=== PATIENT | female | born 1960 | race Caucasian/White ===

== ENCOUNTER → 2016-07-25 | Outpatient (CLI) | payer BC ==
[~2016-07-25] MED LIST: PANT40TA2 PO; SYMB16INH INH; TRAM50TA2 PO
[2016-07-25 10:26] LABS: MEAN CORPUSCULAR HEMOGLOBIN 31.8 pg (27.0-33.0); MEAN CORPUSCULAR HGB CONC 33.4 g/dl (32.0-36.5); MEAN CORPUSCULAR VOLUME 95.1 fl (80.0-96.0); RED CELL DISTRIBUTION WIDTH 12.4 % (11.5-14.5); WHITE BLOOD COUNT 6.4 K/mm3 (4.0-10.0)
[2016-07-25 10:31] LABS: INR 0.86
[2016-07-25 10:54] LABS: ALBUMIN 3.8 GM/DL (3.2-5.2); ALBUMIN/GLOBULIN RATIO 1.19 (1.00-1.93); ALKALINE PHOSPHATASE 103 U/L (45-117); ALT/SGPT 32 U/L (12-78); ANION GAP 5 MEQ/L (8-16); AST/SGOT 18 U/L (15-37); BILIRUBIN,TOTAL 1.1 MG/DL (0.2-1.0); BLOOD UREA NITROGEN 13 MG/DL (7-18); CALCIUM LEVEL 9.1 MG/DL (8.5-10.1); CARBON DIOXIDE LEVEL 29 MEQ/L (21-32); CHLORIDE LEVEL 108 MEQ/L (98-107); CREATININE FOR GFR 0.68 MG/DL (0.55-1.02); GLOMERULAR FILTRATION RATE > 60.0 (>51); GLUCOSE, FASTING 92 MG/DL (70-105); POTASSIUM SERUM 4.6 MEQ/L (3.5-5.1); SODIUM LEVEL 142 MEQ/L (136-145)
--- NOTE | 2016-07-25 22:34 | REP ---
Clinical: Preoperative assessment . Comparison: 11/05/2006 . Technique: PA and lateral. Findings: The mediastinum and cardiac silhouette are normal. The lung mcghee are clear and without acute consolidation, effusion, or pneumothorax. The skeletal structures are intact and normal. Impression: 1. No acute cardiopulmonary process. Signed by Evert Wheeler MD 07/25/2016 10:25 P
--- NOTE | 2016-07-26 20:39 | ECGEPIP ---
Stationary ECG Study [facility] Test Date: 2016-07-25 Pat Name: KENYATTA CHOPRA Department: Room: - Gender: F [employer]: TYREE : 1960 Requested By: Jaime Negrete Order Number: [id number] Reading MD: Jacques Peres Measurements Intervals Equality Rate: 70 P: 33 WY: 145 QRS: 25 QRSD: 88 T: 22 QT: 409 QTc: 442 Interpretive Statements Sinus rhythm, 70 BPM, minor nonspecific ST-T Abnormalities. No prior ECG available for comparison at the time of interpretation. Electronically Signed On 07-26-2016 20:39:04 EDT by Jacques Peres
--- NOTE | 2016-08-02 15:37 | HPE ---
DATE OF PLANNED ADMISSION: 08/08/2016 ATTENDING PHYSICIAN: Jaime Hollingsworth MD CHIEF COMPLAINT: Left knee pain and stiffness. HISTORY: The patient is a 55-year-old female presenting with left knee pain and stiffness. She has failed to improve with conservative measures so she has elected for a left total knee arthroplasty with Dr. Hollingsworth. Medical optimization is pending with Dr. Hardwick and is not available for review during today's visit. CURRENT MEDICATIONS: - tramadol 50 mg one every 6 hours as needed for pain - pantoprazole - Symbicort - Allergy shots every 2 weeks ALLERGIES: No known drug allergies. PAST MEDICAL HISTORY: Asthma. Acid reflux. Knee osteoarthritis. PAST SURGICAL HISTORY: Right total knee arthroplasty. Cholecystectomy. Right knee arthroscopies times three prior to arthroplasty. FAMILY HISTORY: Noncontributory. SOCIAL HISTORY: The patient is not a smoker. Denies alcohol use. REVIEW OF SYSTEMS: The patient denies fever, chills, nausea, vomiting or diarrhea. She denies any chest pain, shortness of breath or headaches. She denies any recent upper respiratory or urinary tract infection symptoms. She does have persistent left knee pain with weightbearing activities. PHYSICAL EXAMINATION: Well-nourished, well-developed female in no apparent distress. NECK: Supple without lymphadenopathy or jugular venous distention. LUNGS: Clear to auscultation bilaterally. ABDOMEN: Bowel sounds are present. Soft and nontender to palpation. MUSCULOSKELETAL: Inspection of the left knee reveal no gross abnormalities. Her skin is intact. She does have tenderness along the medial and lateral joint line. She can extend knee to full extension, but can only flex to about 95 degrees. She does have normal strength of the left lower extremity. No hip irritability was elicited with range of motion. Her calf was soft, nontender to palpation with no palpable cords noted. Her pedal pulses are palpable. VITAL SIGNS: Height 5 foot 6 inches, weight 193.6 pounds, temperature 99.1. Blood pressure 130/90, pulse 64, respirations 12. LABORATORY DATA: Chest x-ray: No acute cardiopulmonary process. EKG: Sinus rhythm. Minor nonspecific ST-T wave abnormalities. Urinalysis: Positive for 2+ leukocyte esterase and WBC elevated at 12. Urine culture shows no growth. Nasal and sinus culture shows normal thee. Prothrombin time 11.8. INR 0.96. Comprehensive metabolic profile: Fasting glucose 92, BUN 13, creatinine for GFR 0.68. Glomerular filtration rate greater than 60. Sodium 142, potassium 4.6, chloride elevated at 108, carbon dioxide 29, anion gap decreased at 5, calcium 9.1. AST 18, ALT 32, alkaline phosphatase 103, total bilirubin 1.1, total protein 7.0, albumin 3.8, albumin globulin ratio 1.19. Complete blood count: WBC 6.4, RBC 4.5, hemoglobin 14.3, hematocrit 42.8, platelets 146. Erythrocyte sedimentation rate 11. ASSESSMENT: Left knee degenerative arthritis with x-rays notable for end-stage degenerative changes. PLAN: The patient has consented for an elective left total knee arthroplasty with Dr. Hollingsworth. Medical optimization pending with Dr. Hardwick.
== END ==
LOC: M ADMPAT 09:09
PROVIDERS: ATTEND Orthopaedic Surgery
DX: Z01.818 Encounter for other preprocedural examination (principal); M17.12 Unilateral primary osteoarthritis, left knee; Z79.899 Other long term (current) drug therapy

== ENCOUNTER 2016-08-08 07:38 | Inpatient (IN) | payer BC ==
[2016-07-25 09:59] VITALS: BP 128/76
[2016-08-08] VITALS (7 sets, daily range): BP systolic 102–142; BP diastolic 59–80
[~2016-08-08] VITALS: Ht 170.2 cm; Wt 87.5 kg
[2016-08-08] MEDS ORDERED: ceFAZolin 2 GM/D5W 50 ML IV BAG (J0690) As Ordered ONE (07:53)
[2016-08-08] MEDS ORDERED: ACETAMINOPHEN 500 MG TAB As Ordered ONE (07:54)
[2016-08-08] MEDS ORDERED: LR 1,000 ML IV SCH ×2 (08:15→13:00)
[2016-08-08] MEDS ORDERED: ACETAMINOPHEN 500 MG TAB PO ONE (08:15)
[2016-08-08] MEDS ORDERED: MIDAZOLAM INJ 2 MG/2 ML VIAL (J2250) As Ordered ONE ×2 (09:05→11:11)
[2016-08-08] MEDS ORDERED: MIDAZOLAM INJ 2 MG/2 ML VIAL (J2250) IV ONE (09:45)
[2016-08-08] MEDS ORDERED: ceFAZolin 1GM INJ (J0690) As Ordered ONE (10:24)
[2016-08-08] MEDS ORDERED: EPINEPHrine INJ 1 MG/ML 1ML AMP As Ordered ONE (10:24)
[2016-08-08] MEDS ORDERED: TRANEXAMIC ACID 100 MG/ML 10ML VIAL As Ordered ONE (10:24)
[2016-08-08] MEDS ORDERED: BUPIVACAINE LIPOSOME/PF 1.3% 20 ML VIAL (13.3MG/ML)(EXPAREL) As Ordered ONE (10:25)
[2016-08-08] MEDS ORDERED: dexameTHASONE 10 MG/1 ML VIAL PRES.FREE (J1100) ONE (10:57)
[2016-08-08] MEDS ORDERED: EPINEPHrine INJ 1 MG/ML 1ML AMP ONE (10:57)
[2016-08-08] MEDS ORDERED: ROPIvacaine 0.5% 30 ML INJECTION (J2795) ONE (10:57)
[2016-08-08] MEDS ORDERED: PROPOFOL 200 MG/20 ML VIAL As Ordered ONE ×2 (11:11→11:41)
[2016-08-08] MEDS ORDERED: fentaNYL 100 MCG/2 ML INJECTION (J3010) As Ordered ONE (11:11)
[2016-08-08] MEDS ORDERED: PHENYLephrine HCL 500 MCG/5 ML (100MCG/ML) SYRINGE (J2370) As Ordered ONE ×2 (11:11→11:37)
[2016-08-08] MEDS ORDERED: ONDANSETRON 4MG/2ML VIAL (J2405) IV PRN (13:00)
[2016-08-08] MEDS ORDERED: FLEET ENEMA PR PRN (13:00)
[2016-08-08] MEDS ORDERED: MORPHINE 1MG/ML IN 0.9% NACL 100ML IV BAG IV PRN (13:00)
[2016-08-08] MEDS ORDERED: diphenhydrAMINE INJ 50MG/ML VIAL (J1200) IV PRN (13:00)
[2016-08-08] MEDS ORDERED: MORPHINE 2 MG/ML 1ML SYRINGE IV PRN (13:00)
[2016-08-08] MEDS ORDERED: EPIDURAL/PCA KEYS XX PRN (13:00)
[2016-08-08] MEDS ORDERED: PERCOCET 5MG/325MG TAB PO PRN (13:00)
[2016-08-08] MEDS ORDERED: fentaNYL 100 MCG/2 ML INJECTION (J3010) IV PRN (13:00)
[2016-08-08] MEDS ORDERED: NALBUPHINE HCL 10 MG/ML AMP (J2300) IV PRN (13:00)
[2016-08-08] MEDS ORDERED: NALOXONE INJ 0.4 MG/1 ML VIAL (J2310) IV PRN (13:00)
[2016-08-08] MEDS: LR 1,000 ML IV SCH ×2 (15:09→23:11)
--- NOTE | 2016-08-08 16:27 | CR.PDOC ---
[facility] Consultation Consultation DATE OF CONSULTATION: 08/08/16 REFERRING PROVIDER: Yann Meek M.D. ATTENDING PHYSICIAN: Dr. Hollingsworth REASON FOR CONSULTATION/CHIEF COMPLAINT: .Medical Co-management HISTORY OF PRESENT ILLNESS: . 55-year-old female with a past medical history significant for asthma and GERD was admitted to [facility] for left knee replacement. At this time, the patient denies any acute complaints of fevers, chills, chest pain, shortness of breath, palpitations, abdominal pain, or any nausea/vomiting/diarrhea. The hospitalist team has been consulted for medical comanagement. ALLERGIES: Please see below. HOME MEDICATIONS: Please see below. PAST MEDICAL HISTORY: As noted above PAST SURGICAL HISTORY: Right total knee arthroplasty FAMILY HISTORY: Noncontributory SOCIAL HISTORY: Patient denies any alcohol, tobacco, or illicit drug use. He is functionally independent at baseline with activities of daily living. REVIEW OF SYSTEMS: 10 point review of systems negative unless otherwise specified in HPI PHYSICAL EXAMINATION: VITAL SIGNS: Please see below. GENERAL APPEARANCE: . Awake, alert, oriented HEENT: . Normocephalic, atraumatic RESPIRATORY: . Clear to auscultation bilaterally CARDIOVASCULAR: . Normal rate, normal rhythm ABDOMEN: . Soft, nontender, nondistended EXTREMITIES: . Left knee noted to wrapped in surgical dressing. Range of motion limited secondary to recent surgery. Neurovascularly intact distally. LABORATORY DATA: Please see below. ASSESSMENT/PLAN: Status post left total knee arthroplasty Pain management and DVT prophylaxis as per primary team History of asthma, stable Continue Symbicort GERD Continue Protonix twice a day Should there be any questions regarding the patient's medical management moving forward, please do not hesitate to contact my colleague Dr. Wilkins, who will begin to follow the patient on 08/09/16 @ 7am. Vital Signs/I&O Vital Signs Date Time Temp Pulse Resp B/P (MAP) Pulse Ox O2 Delivery O2 Flow Rate FiO2 08/08/16 14:43 Room Air 08/08/16 13:56 67 99 08/08/16 13:55 18 132/79 (96) 08/08/16 13:40 97.5 08/08/16 10:29 2 Allergies Coded Allergies: No Known Drug Allergy (Verified Allergy, Unknown, 08/08/16) Home Medications Scheduled Budesonide/Formoterol (Symbicort 160-4.5 Mcg/Act) 60 Puff/Inhaler Aers, 2 PUFF INH BID, (Reported) Pantoprazole Sodium (Pantoprazole Sodium) 40 Mg Tab, 40 MG PO BID, (Reported) Scheduled PRN Tramadol HCl (Tramadol HCl) 50 Mg Tab, 50 MG PO Q4H PRN for PAIN, (Reported) YANN MEEK MD Aug 08, 2016 16:27
[2016-08-08] MEDS ORDERED: WARFARIN SOD 5 MG TAB PO ONE (17:00)
[2016-08-08] MEDS: ONDANSETRON 4MG/2ML VIAL (J2405) IV PRN (17:54)
[2016-08-08] MEDS: SYMBICORT 160/4.5MCG INHALER 6GM INH SCH (20:14)
[2016-08-08] MEDS: PANTOPRAZOLE 40MG TAB (PROTONIX) PO SCH (20:42)
[2016-08-09 02:00] VITALS: BP 105/62
[2016-08-09] MEDS: ONDANSETRON 4MG/2ML VIAL (J2405) IV PRN (02:44)
[2016-08-09 06:00] VITALS: BP 104/57
--- NOTE | 2016-08-09 06:19 | IPNPDOC ---
Subjective Date Seen The patient was seen on 08/09/16. Subjective Chief Complaint/HPI The patient is a 55-year-old female admitted with a reason for visit of Arthritis Left Knee. Events since last encounter No complaints this am . Pain controlled, no nausea or vomiting or diarrhea, no fever or chills, no chest pain or sob Objective Physical Examination General Exam: Positive: Alert, Cooperative, No Acute Distress Eye Exam: Positive: PERRLA, Conjunctiva & lids normal, EOMI, Negative: Sclera icteric ENT Exam: Positive: Atraumatic, Mucous membr. moist/pink, Pharynx Normal Neck Exam: Positive: Supple, Negative: JVD, thyromegaly Chest Exam: Positive: Clear to auscultation, Normal air movement Heart Exam: Positive: Rate Normal, Regular Rhythm, Normal S1, Normal S2, Negative: Murmurs, Rubs Abdomen Exam: Positive: Normal bowel sounds, Soft, Negative: Tenderness, Hepatospenomegaly Extremity Exam: Positive: Normal pulses, Negative: Clubbing, Cyanosis, Edema Skin Exam: Positive: Nl turgor and temperature, Negative: Rash, Breakdown Assessment /Plan Problems (1) S/P total knee arthroplasty Status: Acute Problem Text: patient doing well, starting PT pain control and dvt prophylaxis as per orthopedics. (2) CHARLEY on CPAP Status: Chronic (3) Asthma Status: Chronic Problem Text: continue symbicort. albuterol prn (4) GERD (gastroesophageal reflux disease) Status: Chronic Problem Text: continue ppi Plan/VTE VTE Prophylaxis Ordered?: Yes VS, I&O, 24H, Fishbone Vital Signs/I&O Vital Signs Date Time Temp Pulse Resp B/P (MAP) Pulse Ox O2 Delivery O2 Flow Rate FiO2 08/09/16 02:00 96.7 68 16 105/62 (76) 97 Room Air 08/08/16 10:29 2 I&O- Last 24 Hours up to 6 AM 08/09/16 06:00 Intake Total 2744 ml Output Total 2750 ml Balance -6 ml YOON BALBUENA MD Aug 09, 2016 06:19
[2016-08-09] MEDS ORDERED: ALBUTEROL SULFATE 2.5 MG/0.5 ML INH NEB SOLN NEB PRN (06:30)
[2016-08-09 06:55] LABS: MEAN CORPUSCULAR HEMOGLOBIN 32.2 pg (27.0-33.0); MEAN CORPUSCULAR HGB CONC 33.5 g/dl (32.0-36.5); RED CELL DISTRIBUTION WIDTH 12.3 % (11.5-14.5); WHITE BLOOD COUNT 11.7 K/mm3 (4.0-10.0)
[2016-08-09 06:59] LABS: INR 1.07
[2016-08-09 07:12] LABS: ANION GAP 5 MEQ/L (8-16); BLOOD UREA NITROGEN 12 MG/DL (7-18); CALCIUM LEVEL 8.5 MG/DL (8.5-10.1); CARBON DIOXIDE LEVEL 30 MEQ/L (21-32); CHLORIDE LEVEL 102 MEQ/L (98-107); CREATININE FOR GFR 0.74 MG/DL (0.55-1.02); GLOMERULAR FILTRATION RATE > 60.0 (>51); GLUCOSE, FASTING 134 MG/DL (70-105); POTASSIUM SERUM 3.8 MEQ/L (3.5-5.1); SODIUM LEVEL 137 MEQ/L (136-145)
[2016-08-09] MEDS: SYMBICORT 160/4.5MCG INHALER 6GM INH SCH ×2 (07:12→20:25)
[2016-08-09] MEDS: ONDANSETRON 4 MG TAB (S0181) PO PRN ×2 (07:53→20:42)
[2016-08-09] MEDS: SENOKOT S TAB PO SCH ×2 (07:54→20:42)
[2016-08-09] MEDS: MOM 30ML SUSPENSION UDC PO SCH ×2 (07:54→08:05)
[2016-08-09] MEDS: PANTOPRAZOLE 40MG TAB (PROTONIX) PO SCH ×2 (07:54→20:42)
[2016-08-09] MEDS: MIRALAX *UNIT DOSE* 17GM PACKET PO SCH (07:54)
[2016-08-09] MEDS: PERCOCET 5MG/325MG TAB PO PRN ×3 (07:54→20:44)
[2016-08-09 10:00] VITALS: BP 107/66
[2016-08-09] MEDS: ACETAMINOPHEN TAB 650MG DOSE (2X325MG) PO PRN ×2 (11:17→15:21)
[2016-08-09 14:00] VITALS: BP 137/70
[2016-08-09] MEDS ORDERED: PERCOCET 5MG/325MG TAB PO ONE (16:45)
[2016-08-09] MEDS ORDERED: WARFARIN SOD 5 MG TAB PO ONE (17:00)
--- NOTE | 2016-08-09 17:24 | REP ---
AP AND LATERAL LEFT KNEE: 08/09/2016. Clinical history: Status post left total knee arthroplasty. No prior studies. Findings: Skin carmita anteriorly from yesterday's surgery are noted along with swelling and soft tissues with suprapatellar effusion and subcutaneous edema with air. All of this is appropriate postoperatively. The three components of the total knee arthroplasty are well aligned in relationship to the tanana bone and each other. No other finding. Unreviewed
--- NOTE | 2016-08-09 18:11 | RO ---
DATE OF PROCEDURE: 08/08/2016 PREPROCEDURE DIAGNOSIS: Left knee degenerative arthritis. POSTPROCEDURE DIAGNOSIS: Left knee degenerative arthritis. PROCEDURE: Left total knee arthroplasty using a size 3 cruciate-retaining femoral component with a size 2.5 tibial tray with a 12.5 mm rotating platform, polyethylene insert and a 35 mm polyethylene button. All the components were cemented. Prosthesis made by [employer]. It was PFC knee. SURGEON: Dr. Jaime Hollingsworth SUPERVISOR SAMPLE: Rosa Tawanna Biggs ANESTHESIA: Spinal with left femoral nerve block. COMPLICATIONS: None. ESTIMATED BLOOD LOSS: Less than 20 mL. SPECIMENS: Joint surface. DESCRIPTION OF PROCEDURE: Antibiotics were given intravenously preoperatively successfully and then a left femoral nerve block and then a spinal anesthetic was induced. Tourniquet was placed on the left upper thigh and not inflated. The left lower extremity was prepped and draped in the usual sterile fashion, leg elevated and after appropriate time-out, tourniquet was inflated to 250 mmHg. A longitudinal incision was made for a medial parapatellar approach to the knee. Bovie cautery was used to coagulate crossing vessels. Subperiosteal dissection around the proximal medial portion of the tibia was performed and then we everted the patella and flexed the knee. Drill was placed down the center of the femoral canal followed by the intramedullary jeffry and the distal femoral cutting block was set at 5 degree valgus cut for a left knee and a 10 mm resection level. The distal femoral block was pinned into position and then the distal femoral cut performed. AP sizing jig measured just above a 3; subsequently we went with a size 3. The external rotation block was pinned in position followed by the 4-in-1 block and then the anterior, posterior, Chamfer cuts were performed, taking great care to protect the surrounding soft tissues. We then exposed the proximal tibia and used the extramedullary jeffry to attempt to be parallel to the mechanical axis of the tibia. It was referenced off the medial tibial condyle at 4 mm. Block was pinned in position. Secondary check with the extramedullary jeffry confirmed that we appeared to be parallel to the mechanical axis. Proximal tibial osteotomy was then performed, then the lamina application systems administrator was placed laterally and we performed a completion medial meniscectomy and debridement of posterior medial osteophytes. We then placed the lamina application systems administrator medially and performed a completion lateral meniscectomy and debridement of the posterolateral osteophytes. Spacer blocks were trialed, the 10 was too loose, 12.5 seemed to be about right. We trialed the 15 but it was too tight. The 12.5 was selected. We exposed the proximal tibia, sized for a 2.5 tray, which was pinned into position, followed by the reamer and broach, then the trial 12.5, the trial femoral component, which fit nicely, brought the knee into extension, everted the patella, performed a patellar osteotomy, sized for a 35 button. Then, the lug holes were drilled a trial polyethylene patellar component was placed and patellofemoral tracking was anatomic. She had good stability to varus/valgus stress testing both in flexion and extension, slight hyperextensibility as she did preoperatively, consistent with her premorbid status, so I felt this was the appropriate sized components to use then. Thus, we drilled the lug holes for the femur and removed all the trial components and then prepared the bony surfaces for cementing. Mrs. Tawanna Biggs mixed the cement on the back table. She was also critical to the success of the procedure by helping me to perform the operation, by appropriate soft tissue retraction and manipulating the knee as needed, as well as helping to close the wound, and also prepared the patient amongst many other tasks. After all bony surfaces were thoroughly dried, we cemented the tibial tray, placed the polyethylene, then cemented the femoral component, brought the knee into extension, then cemented the patellar button and held it with a clamp until the cement hardened. While we were waiting for the cement to harden, we copiously pulsatile lavage irrigated out the knee joint as we did several times throughout the operation. We used the Exparel injection then to instill the Exparel solution subperiosteally around the femoral component and around the tibial component, as well as in the edges of the arthrotomy wound and then the tranexamic acid was applied, let it sit in the knee and then we began closing the arthrotomy. First, the apex was closed with two #1 PDS sutures, medial parapatellar area was closed with #1 PDS suture, then we used a running #1 Stratafix double-armed to close the capsule. Then, we flexed the knee in extension and flexion, the capsular arthrotomy was nice and secure. The tourniquet was released. Exparel was also placed in the deep subdermal tissues laterally. The subdermal tissues were then closed with interrupted #2-0 PDS suture, skin was closed with carmita, covered by Adaptic dry sterile bulky dressing. It was noteworthy that the tourniquet was released after we had closed the arthrotomy. She was then transferred to the recovery room in stable condition. There were no intraoperative complications.
[2016-08-09 22:00] VITALS: BP 176/61
[2016-08-10] MEDS: PERCOCET 5MG/325MG TAB PO PRN ×3 (01:02→13:02)
[2016-08-10] MEDS: ACETAMINOPHEN TAB 650MG DOSE (2X325MG) PO PRN (05:17)
[2016-08-10 06:00] VITALS: BP 135/65
[2016-08-10 06:54] LABS: INR 1.13
[2016-08-10 07:10] LABS: ANION GAP 5 MEQ/L (8-16); BLOOD UREA NITROGEN 9 MG/DL (7-18); CALCIUM LEVEL 8.6 MG/DL (8.5-10.1); CARBON DIOXIDE LEVEL 31 MEQ/L (21-32); CHLORIDE LEVEL 101 MEQ/L (98-107); CREATININE FOR GFR 0.66 MG/DL (0.55-1.02); GLOMERULAR FILTRATION RATE > 60.0 (>51); GLUCOSE, FASTING 119 MG/DL (70-105); POTASSIUM SERUM 3.7 MEQ/L (3.5-5.1); SODIUM LEVEL 137 MEQ/L (136-145)
[2016-08-10 07:13] LABS: MEAN CORPUSCULAR HEMOGLOBIN 32.4 pg (27.0-33.0); MEAN CORPUSCULAR HGB CONC 34.2 g/dl (32.0-36.5); MEAN CORPUSCULAR VOLUME 94.7 fl (80.0-96.0); RED CELL DISTRIBUTION WIDTH 12.6 % (11.5-14.5); WHITE BLOOD COUNT 9.2 K/mm3 (4.0-10.0)
[2016-08-10] MEDS ORDERED: PERC5TAB6 PO (07:48)
[2016-08-10] MEDS ORDERED: COUM2.5T11 PO (07:48)
[2016-08-10] MEDS: SYMBICORT 160/4.5MCG INHALER 6GM INH SCH (07:49)
[2016-08-10] MEDS ORDERED: ENOXAPARIN 40 MG/0.4 ML SYRINGE (J1650) SC ONE (08:00)
[2016-08-10] MEDS: MIRALAX *UNIT DOSE* 17GM PACKET PO SCH (08:56)
[2016-08-10] MEDS: PANTOPRAZOLE 40MG TAB (PROTONIX) PO SCH (08:56)
[2016-08-10] MEDS: MOM 30ML SUSPENSION UDC PO SCH (08:56)
[2016-08-10] MEDS: SENOKOT S TAB PO SCH (08:56)
--- NOTE | 2016-08-10 12:16 | IPNPDOC ---
Subjective Date Seen The patient was seen on 08/10/16. Subjective Chief Complaint/HPI The patient is a 55-year-old female admitted with a reason for visit of Arthritis Left Knee. Events since last encounter no complaints this am, working with PT. no fever or chills, no chest pain or SOB , no nausea or vomiting or diarrhea. Objective Physical Examination General Exam: Positive: Alert, Cooperative, No Acute Distress Eye Exam: Positive: PERRLA, Conjunctiva & lids normal, EOMI, Negative: Sclera icteric ENT Exam: Positive: Atraumatic, Mucous membr. moist/pink, Pharynx Normal Neck Exam: Positive: Supple, Negative: JVD, thyromegaly Chest Exam: Positive: Clear to auscultation, Normal air movement Heart Exam: Positive: Rate Normal, Regular Rhythm, Normal S1, Normal S2, Negative: Murmurs, Rubs Abdomen Exam: Positive: Normal bowel sounds, Soft, Negative: Tenderness, Hepatospenomegaly Extremity Exam: Positive: Normal pulses, Negative: Clubbing, Cyanosis, Edema Skin Exam: Positive: Nl turgor and temperature, Negative: Rash, Breakdown Assessment /Plan Problems (1) S/P total knee arthroplasty Status: Acute Problem Text: patient doing well, starting PT pain control and dvt prophylaxis as per orthopedics. (2) CHARLEY on CPAP Status: Chronic (3) Asthma Status: Chronic Problem Text: continue symbicort. albuterol prn (4) GERD (gastroesophageal reflux disease) Status: Chronic Problem Text: continue ppi Plan/VTE VTE Prophylaxis Ordered?: Yes VS, I&O, 24H, Fishbone Vital Signs/I&O Vital Signs Date Time Temp Pulse Resp B/P (MAP) Pulse Ox O2 Delivery O2 Flow Rate FiO2 08/10/16 09:26 16 08/10/16 09:00 Room Air 08/10/16 06:00 99.0 83 135/65 (88) 93 08/08/16 10:29 2 I&O- Last 24 Hours up to 6 AM 08/10/16 06:00 Intake Total 600 ml Output Total 2200 ml Balance -1600 ml Laboratory Data 24H LABS Laboratory Tests 2 08/10/16 06:24: Prothrombin Time 14.6H, Prothromb Time International Ratio 1.13, Anion Gap 5L, Glomerular Filtration Rate > 60.0, Blood Urea Nitrogen 9, Creatinine 0.66, Sodium Level 137, Potassium Level 3.7, Chloride Level 101, Carbon Dioxide Level 31, Calcium Level 8.6 CBC/BMP Laboratory Tests 08/10/16 06:24 Red Blood Count 3.89 L, Mean Corpuscular Volume 94.7, Mean Corpuscular Hemoglobin 32.4, Mean Corpuscular Hemoglobin Concent 34.2, Red Cell Distribution Width 12.6, Calcium Level 8.6 YOON BALBUENA MD Aug 10, 2016 12:16
--- NOTE | 2016-08-14 21:51 | DSES ---
DATE OF ADMISSION: 08/08/2016 DATE OF DISCHARGE: 08/10/2016 ADMISSION DIAGNOSIS: Left knee pain. OTHER DIAGNOSES: Seasonal allergies. DISCHARGE DIAGNOSIS: Left knee pain status post left total knee arthroplasty. OPERATION PERFORMED: Left total knee arthroplasty. HISTORY: This is a 55-year-old female with progressively worsening left knee pain and stiffness. The patient was admitted for elective left knee replacement. HOSPITAL COURSE: The patient was admitted on the day of surgery and underwent left knee arthroplasty which was uneventful. She did well in the postoperative period and her hospital course was without complications. The patient was up with physical therapy per the protocol and her pain was controlled. On the day of discharge the patient was doing well. She was weightbearing as tolerated, will move her knee to prevent stiffness, will use adjusted dose Coumadin and thromboembolic deterrent (ANDREI) stockings for 30 days postoperatively for deep venous thrombosis (DVT) prophylaxis and she will use oral medications for pain control. Also she will follow in the office in 2 weeks for staple removal, will resume preoperative medications and diet and she was given instructions for wound monitoring and activity limitations. Please refer to the medical record for further details.
== END 2016-08-10 13:09 | disposition home health service (06) | DRG 302 ==
LOC: M OR 07:38 → M MS5PR 14:10
PROVIDERS: ADMIT Orthopaedic Surgery; ATTEND Orthopaedic Surgery
PROC: 0SRD0J9 Replacement of Left Knee Joint with Synthetic Substitute, Cemented, Open Approach (ICD-10-PCS; principal; 2016-08-08 10:05)
DX: M17.12 Unilateral primary osteoarthritis, left knee (principal); G47.33 Obstructive sleep apnea (adult) (pediatric); J45.909 Unspecified asthma, uncomplicated; K21.9 Gastro-esophageal reflux disease without esophagitis; Z99.89 Dependence on other enabling machines and devices; Z96.651 Presence of right artificial knee joint; Z79.899 Other long term (current) drug therapy

== ENCOUNTER → 2017-04-09 | Outpatient (REF) | payer BC | LOC: M WUC 19:19 | DX: J02.9 Acute pharyngitis, unspecified (principal) | CPT/HCPCS: 87070 ==

== ENCOUNTER → 2017-05-17 | Outpatient (CLI) | payer BC ==
[~2017-05-17] MED LIST changes: +LIDOCAINE 2% INJ 100 MG/5 ML SDV (FOR ANES.) As Ordered; -PANT40TA2 PO; +PROPOFOL 200 MG/20 ML VIAL As Ordered; -SYMB16INH INH; -TRAM50TA2 PO
[2017-05-17 11:38] LABS: ALBUMIN/GLOBULIN RATIO 1.18 (1.00-1.93); ALKALINE PHOSPHATASE 109 U/L (45-117); ALT/SGPT 28 U/L (12-78); AST/SGOT 18 U/L (7-37); BILIRUBIN,DIRECT 0.3 MG/DL (0.0-0.2); BILIRUBIN,TOTAL 1.4 MG/DL (0.2-1.0); TOTAL PROTEIN 7.4 GM/DL (6.4-8.2)
[2017-05-21 08:09] LABS: TISSUE TRANSGLUTAMINASE IgA <2 U/mL (0-3)
[2017-05-21 08:09] LABS: IGASUB3 55.4 mg/dL (13.4-97.9); IgA SERUM (part of Subclasses) 195 mg/dL (87-352)
== END ==
LOC: M OPP 10:38
DX: K21.9 Gastro-esophageal reflux disease without esophagitis (principal)
CPT/HCPCS: 80076

== ENCOUNTER 2017-06-14 11:30 | Day surgery (SDC) | payer BC ==
[2017-06-14] MEDS: NS 1,000 ML IV ×2 (11:45)
[2017-06-14] MEDS ORDERED: PROPOFOL 200 MG/20 ML VIAL As Ordered ×6 (13:04→13:10)
== END 2017-06-14 13:48 | disposition home or self-care (01) ==
LOC: M SDC 11:30
DX: K31.7 Polyp of stomach and duodenum (principal); K21.9 Gastro-esophageal reflux disease without esophagitis; J45.909 Unspecified asthma, uncomplicated; G47.30 Sleep apnea, unspecified; M54.5 Low back pain; Z79.899 Other long term (current) drug therapy
CPT/HCPCS: 43251

== ENCOUNTER 2017-07-05 07:37 | Day surgery (SDC) | payer BC ==
[2017-07-05] MEDS: NS 1,000 ML IV (08:42)
[2017-07-05] MEDS ORDERED: LIDOCAINE 2% INJ 100 MG/5 ML SDV (FOR ANES.) As Ordered (09:48)
[2017-07-05] MEDS ORDERED: PROPOFOL 200 MG/20 ML VIAL As Ordered ×2 (09:48)
== END 2017-07-05 10:34 | disposition home or self-care (01) ==
LOC: M OPP 07:37
DX: R19.7 Diarrhea, unspecified (principal); D12.0 Benign neoplasm of cecum; D12.2 Benign neoplasm of ascending colon; K57.30 Diverticulosis of large intestine without perforation or abscess without bleeding; K64.8 Other hemorrhoids; K58.9 Irritable bowel syndrome, unspecified; K21.9 Gastro-esophageal reflux disease without esophagitis; K29.70 Gastritis, unspecified, without bleeding; J45.909 Unspecified asthma, uncomplicated; Z78.0 Asymptomatic menopausal state; G47.30 Sleep apnea, unspecified; Z96.653 Presence of artificial knee joint, bilateral; Z87.891 Personal history of nicotine dependence; Z79.899 Other long term (current) drug therapy; Z80.1 Family history of malignant neoplasm of trachea, bronchus and lung; Z80.0 Family history of malignant neoplasm of digestive organs
CPT/HCPCS: 45380

== ENCOUNTER → 2017-08-06 | Outpatient (CLI) | payer BC ==
[~2017-08-06] MED LIST changes: +ISOVUE-370 76% 100ML VIAL (Q9967) As Ordered; -LIDOCAINE 2% INJ 100 MG/5 ML SDV (FOR ANES.) As Ordered; -PROPOFOL 200 MG/20 ML VIAL As Ordered
== END ==
LOC: M RAD 16:32
DX: R22.1 Localized swelling, mass and lump, neck (principal); E04.2 Nontoxic multinodular goiter
CPT/HCPCS: Q9967

== ENCOUNTER → 2017-08-23 | Outpatient (CLI) | payer BC ==
[~2017-08-23] MED LIST changes: -ISOVUE-370 76% 100ML VIAL (Q9967) As Ordered; +LIDOCAINE 1% MDV 20ML VIAL As Ordered
== END ==
LOC: M RADPRO 12:11
DX: R22.1 Localized swelling, mass and lump, neck (principal); Z96.653 Presence of artificial knee joint, bilateral; Z79.899 Other long term (current) drug therapy
CPT/HCPCS: 38505

== ENCOUNTER → 2017-10-01 | Outpatient (REF) | payer BC, OTHER ==
[2017-10-02 09:00] LABS: HEPATITIS B SURFACE ANTIGEN NEGATIVE (NEGATIVE)
[2017-10-02 09:16] LABS: HEPATITIS B CORE ANTIBODY IGM NEGATIVE (NEGATIVE)
[2017-10-02 09:16] LABS: HEPATITIS C VIRUS ABY INDEX 0.1 INDEX (<0.8)
[2017-10-03 00:13] LABS: BETA 2 MICROGLOBULIN 1.4 mg/L (0.6-2.4)
== END ==
LOC: M LAB REF 13:18
DX: D47.9 Neoplasm of uncertain behavior of lymphoid, hematopoietic and related tissue, unspecified (principal)
CPT/HCPCS: 87340

== ENCOUNTER → 2017-10-02 | Outpatient (REF) | payer BC, OTHER | LOC: M LAB REF 13:30 | DX: C85.10 Unspecified B-cell lymphoma, unspecified site (principal) | CPT/HCPCS: 88300 ==

== ENCOUNTER → 2017-10-15 | Outpatient (CLI) | payer BC | LOC: M PLARAD 11:23 | DX: D47.9 Neoplasm of uncertain behavior of lymphoid, hematopoietic and related tissue, unspecified (principal) | CPT/HCPCS: 78815 ==

== ENCOUNTER → 2017-12-16 | Outpatient (CLI) | payer BC, SELFPAY, OTHER | LOC: M LRY 13:32 | DX: S59.911A Unspecified injury of right forearm, initial encounter (principal); M85.80 Other specified disorders of bone density and structure, unspecified site | CPT/HCPCS: 73090 ==

== ENCOUNTER → 2018-05-20 | Outpatient (CLI) | payer BC ==
[~2018-05-20] MED LIST changes: +COUM2.5T17 PO; +DICY10SO PO; +DICY20TA11 PO; +IPRA6SP; +KENAAER3 TOP; -LIDOCAINE 1% MDV 20ML VIAL As Ordered; +LINZ145C PO; +LOPE2CAP PO; +ONDA4TAB5 PO; +PANT40TA3 PO; +PERC5TAB12 PO; +SYMB16INH INH; +TRAM50TA2 PO; +ZYRT10CA PO
--- NOTE | 2018-05-21 08:49 | REP ---
PET/CT: HISTORY: Restaging CLL. COMPARISONS: PET/CT study is from October 15, 2017. This showed hypermetabolic lymph nodes in the right neck. TECHNIQUE: 66 minutes following the intravenous injection of a 8.7 mCi dose of F-18 FDG, three-dimensional PET scintigraphy is acquired from the skull base to the proximal thighs. Triplanar noncontrast CT scanning is acquired through the same anatomic range for attenuation correction, and image registration with scan parameters optimized to minimize radiation exposure to the patient. PET scintigraphy and CT datasets were fused and displayed on a workstation with multiplanar and projection display capability. PET/CT FINDINGS: Hypermetabolic uptake is seen again seen in to anterior jugular right cervical lymph nodes. However, the avidity has decreased substantially. Previous maximum standard uptake value was 13.2. Currently, maximum standard uptake value in these hypermetabolic lymph nodes is 5.8. They are unchanged in size with a short-axis greatest dimension of 1.1 cm. No other abnormal hypermetabolic uptake is seen in the neck. No hypermetabolic magalys uptake is seen in the chest. No abnormal pulmonary parenchymal hypermetabolic uptake is appreciated. In the abdomen and pelvis there is no abnormal hypermetabolic uptake. IMPRESSION: Right cervical lymph nodes remain hypermetabolic although they have decreased in avidity as above. They are unchanged in size. Electronically Signed by Edison Amos MD 05/21/2018 03:49 P
== END ==
LOC: M PLARAD 12:54
PROVIDERS: ATTEND Internal Medicine Hematology & Oncology
DX: C91.12 Chronic lymphocytic leukemia of B-cell type in relapse (principal)
CPT/HCPCS: 78815; A9552

== ENCOUNTER → 2018-12-29 | Outpatient (CLI) | payer BC ==
[~2018-12-29] MED LIST changes: +IBUP-1022 PO; +TAMS1CAP17 PO
--- NOTE | 2018-12-29 11:01 | REP ---
ABDOMEN: Two views. HISTORY: Right-sided renal colic. FINDINGS: There are degenerative disc disease changes in the lumbar spine. There is a paravertebral calcific opacity 8 mm in diameter overlying the right psoas margin at the level of the L2 vertebral body which could be a ureteral stone. There are clips in right upper quadrant. There are phleboliths in the pelvis. IMPRESSION: There is an 8 mm calcific opacity along the right psoas margin which could be in the mid ureter. Electronically Signed by Edison Amos MD 12/29/2018 12:37 P
== END ==
LOC: M LRY 09:42
PROVIDERS: ATTEND Physician Assistant Medical
DX: N23 Unspecified renal colic (principal); M51.36 Other intervertebral disc degeneration, lumbar region; I87.8 Other specified disorders of veins

== ENCOUNTER → 2018-12-29 | Outpatient (REF) | payer BC ==
[2018-12-29 12:53] LABS: BASO % 0.6 % (0.0-1.0); EOS # 0.1 10^3/uL (0.0-0.5); EOS % 0.9 % (0.0-3.0); HEMATOCRIT 42.8 % (36.0-47.0); HEMOGLOBIN 13.9 g/dl (12.0-15.5); LYMPH # 1.3 10^3/uL (1.5-5.0); LYMPH % 19.4 % (24.0-44.0); MEAN CORPUSCULAR HEMOGLOBIN 31.4 pg (27.0-33.0); MEAN CORPUSCULAR HGB CONC 32.5 g/dl (32.0-36.5); MEAN CORPUSCULAR VOLUME 96.6 fl (80.0-96.0); MONO # 0.5 10^3/uL (0.0-0.8); MONO % 7.4 % (0.0-5.0); NEUTROPHILS # 4.9 10^3/uL (1.5-8.5); NEUTROPHILS % 71.3 % (36.0-66.0); PLATELET COUNT, AUTOMATED 204 10^3/uL (150-450); RED BLOOD COUNT 4.43 10^6/uL (4.00-5.40); WHITE BLOOD COUNT 6.9 10^3/uL (4.0-10.0)
[2018-12-29 13:14] LABS: ALBUMIN 3.8 GM/DL (3.2-5.2); ALT/SGPT 20 U/L (12-78); BILIRUBIN,DIRECT 0.2 MG/DL (0.0-0.2); BLOOD UREA NITROGEN 15 MG/DL (7-18); CALCIUM LEVEL 9.2 MG/DL (8.8-10.2); CARBON DIOXIDE LEVEL 30 MEQ/L (21-32); CHLORIDE LEVEL 105 MEQ/L (98-107); CREATININE FOR GFR 0.68 MG/DL (0.55-1.30); GLOMERULAR FILTRATION RATE > 60.0 (>45); GLUCOSE, FASTING 91 MG/DL (70-100); POTASSIUM SERUM 4.5 MEQ/L (3.5-5.1); SODIUM LEVEL 141 MEQ/L (136-145); TOTAL PROTEIN 7.1 GM/DL (6.4-8.2)
== END ==
LOC: M SFHCLERA 09:40
PROVIDERS: ATTEND Physician Assistant Medical
DX: N23 Unspecified renal colic (principal)

== ENCOUNTER → 2018-12-31 | Outpatient (CLI) | payer BC ==
--- NOTE | 2018-12-31 15:53 | REP ---
CT abdomen and pelvis without IV or oral contrast: History: Renal colic, question kidney stone. Comparison is made with CT imaging from the PET/CT study dated May 20, 2018. CT findings: Preliminary digital dining chair seat cushion trimmer radiograph demonstrates clips in right upper quadrant. The lung bases are clear on axial CT images. There are surgical clips in the gallbladder fossa. The liver and the spleen are normal in size, homogeneous in texture. No adrenal lesion is seen. The pancreas is unremarkable. Small and large intestinal bowel loops are normal in the abdomen and pelvis. Normal appendix is seen in the right lower quadrant. No uterine or ovarian abnormality is seen. The uterus is retroverted and tipped to the left. Urinary bladder is unremarkable. There is mild left colonic diverticulosis without CT evidence of diverticulitis. There is mild right-sided hydronephrosis due to a 9 mm intrarenal calculus in the proximal ureter at the level of the lower pole of the right kidney. No intrarenal calculus is noted on the right. There is a 3 mm calculus at the upper pole collecting system on the left. No left-sided hydronephrosis is seen. No abdominal wall defect is seen. No bony destructive lesion is observed. Impression: Mild to moderate right-sided hydronephrosis due to a 9 mm intrarenal calculus at proximal ureter on the right at the level of the lower pole of the right kidney. Intrarenal calculus upper pole left kidney without left-sided hydronephrosis. Status post cholecystectomy. Normal appendix. Left colonic diverticulosis. Electronically Signed by Edison Amos MD 12/31/2018 04:55 P
== END ==
LOC: M RAD 14:56
PROVIDERS: ATTEND Nurse Practitioner Women's Health
DX: N20.0 Calculus of kidney (principal); N13.30 Unspecified hydronephrosis; K57.90 Diverticulosis of intestine, part unspecified, without perforation or abscess without bleeding; N23 Unspecified renal colic

== ENCOUNTER 2019-01-07 08:55 | Day surgery (SDC) | payer BC ==
[~2019-01-07] VITALS: Ht 170.2 cm; Wt 89.8 kg
[~2019-01-07 08:55] MED LIST changes: +ALL10TAB29 PO
[2019-01-07] MEDS ORDERED: ceFAZolin SOD 2 GM in IV 1 EA IV ONE (09:00)
[2019-01-07 09:33] LABS: INR 0.94; PROTHROMBIN TIME 12.3 SECONDS (11.8-14.0)
[2019-01-07] MEDS ORDERED: CONRAY-60 60% 50ML VIAL (Q9961) As Ordered ONE (09:45)
[2019-01-07] MEDS ORDERED: PROPOFOL 200 MG/20 ML VIAL As Ordered ONE (10:00)
[2019-01-07] MEDS ORDERED: dexameTHASONE 4 MG/ML 1ML VIAL (J1100) As Ordered ONE ×2 (10:01→11:57)
[2019-01-07] MEDS ORDERED: fentaNYL 100 MCG/2 ML INJECTION (J3010) As Ordered ONE (10:01)
[2019-01-07] MEDS ORDERED: ONDANSETRON 4MG/2ML VIAL (J2405) As Ordered ONE ×2 (10:01→11:57)
[2019-01-07] MEDS ORDERED: MIDAZOLAM INJ 2 MG/2 ML VIAL (J2250) As Ordered ONE (10:02)
[2019-01-07] MEDS ORDERED: LIDOCAINE 2% INJ 100 MG/5 ML SDV (FOR ANES.) As Ordered ONE (11:57)
[2019-01-07] MEDS ORDERED: ACETAMINOPHEN 1000MG 100ML IV BTL (OFIRMEV) (J0131 PER 10MG) As Ordered ONE (12:06)
[2019-01-07] MEDS ORDERED: KETOROLAC 60 MG/2 ML VIAL (J1885) As Ordered ONE (12:08)
--- NOTE | 2019-01-07 12:52 | REP ---
RETROGRADE PYELOGRAM: TWO VIEWS. HISTORY: Cystoscopy. Right-sided stent. 33 seconds of fluoroscopy time is reported. FINDINGS: A sequence of two last-image hold fluoroscopically obtained spot radiographs of the right abdomen document right ureteral cannulation, contrast injection, and double pigtail stent placement. Electronically Signed by Edison Amos MD 01/07/2019 12:57 P
[2019-01-07] MEDS ORDERED: LR 1,000 ML IV SCH (13:00)
[2019-01-07] MEDS ORDERED: ONDANSETRON 4MG/2ML VIAL (J2405) IV PRN (13:00)
[2019-01-07] MEDS ORDERED: PERCOCET 5MG/325MG TAB PO PRN (13:00)
[2019-01-07] MEDS ORDERED: oxyBUTYnin 5 MG TAB PO PRN (13:00)
[2019-01-07] MEDS ORDERED: fentaNYL 100 MCG/2 ML INJECTION (J3010) IV PRN (13:00)
[2019-01-07] MEDS ORDERED: HYDROMORPHONE HCL 0.5 MG/ 0.5 ML SYRINGE (J1170 PER 1) IV PRN (13:00)
--- NOTE | 2019-01-07 13:05 | RO ---
DATE OF PROCEDURE: 01/07/2019 PREPROCEDURE DIAGNOSIS: Right ureteral stone. POSTPROCEDURE DIAGNOSIS: Right ureteral stone. PROCEDURE: Cystoscopy, right ureteroscopy with laser lithotripsy and basket extraction of stones, right retrograde pyelogram with intraoperative interpretation of images, right ureteral stent placement. SURGEON: Dr. Tyler Colunga LACTATION NURSE: None. ANESTHESIA: General. OPERATIVE INDICATIONS: This is a 58-year-old female who was found to have an approximately 7-8 mm obstructing proximal right ureteral stone on recent CAT scan. She was brought to the operating room today for treatment. DESCRIPTION OF PROCEDURE: The patient was brought to the operating room and general anesthesia was induced. Prophylactic antibiotics were infused. She was then placed in dorsal lithotomy position and prepped and draped in the usual sterile fashion. A rigid cystoscope was inserted into the urethral meatus and advanced into the bladder. A guidewire was advanced up the right collecting system. I then advance a ureteral access sheath up the right collecting system. I then went up the access sheath with a flexible ureteroscope and of note the patient's mid to proximal ureter were very narrow and this made advancing the ureteroscope all the way into the kidney very difficult. I was ultimately able to get the ureteroscope into the kidney and of note the stone was not in the proximal ureter. It appeared to have been pushed into the kidney when the wire was advanced up. The stone was then found and fragmented into smaller pieces using a 272 micron laser fiber. The majority of the stone was dusted into tiny pieces that can be passed without difficulty. One fragment of the stone was obtained with the basket to be sent for analysis. A retrograde pyelogram was then performed and was notable for mild right hydronephrosis and no extravasation. I then withdrew the ureteroscope along with access sheath and once again no stones were seen within the ureter. The previously placed wire was then utilized to advance a 6 Tun[place]ian x 22-32 cm JJ ureteral stent into the right collecting system. The wire was removed and there were adequate curls of the stent in the right renal pelvis and in the bladder. The bladder was then emptied of all fluid and this marked the conclusion of the procedure. The patient was then taken out of the dorsal lithotomy position, awakened from anesthesia and transported to the recovery room in stable condition. Estimated blood loss: 5 mL. Complications: None. Specimen: Right kidney stone fragment. Plan: The patient will followup in the clinic in 2-3 weeks for stent removal.
[2019-01-07] MEDS ORDERED: ACETAMINOPHEN TAB 650MG DOSE (2X325MG) PO PRN (14:01)
[2019-01-07 14:20] VITALS: BP 166/79
[2019-01-07] MEDS ORDERED: KETOROLAC 30 MG/ML VIAL (J1885) IV PRN (18:00)
== END 2019-01-07 14:22 | disposition home or self-care (01) ==
LOC: M SDC 08:55
PROVIDERS: ATTEND Urology
DX: N13.1 Hydronephrosis with ureteral stricture, not elsewhere classified (principal); R31.0 Gross hematuria; N23 Unspecified renal colic; J45.909 Unspecified asthma, uncomplicated; Z87.442 Personal history of urinary calculi; C91.10 Chronic lymphocytic leukemia of B-cell type not having achieved remission; C85.90 Non-Hodgkin lymphoma, unspecified, unspecified site; K58.9 Irritable bowel syndrome, unspecified; G47.30 Sleep apnea, unspecified; Z87.891 Personal history of nicotine dependence; Z79.899 Other long term (current) drug therapy; Z79.51 Long term (current) use of inhaled steroids
CPT/HCPCS: 36415; 52332; 52352; 74420; 82360; 85610; 88300; C1769; C1894; C2617; J0131; J0690; J1100; J1885; J2250; J2405; J3010; Q9961

== ENCOUNTER → 2020-04-06 | Outpatient (CLI) | payer SELFPAY ==
[~2020-04-06] MED LIST changes: -ALL10TAB29 PO; +CETI-24 PO; +ONDA-83 PO; -ONDA4TAB5 PO; +PANT40TA29 PO; -PANT40TA3 PO
== END ==
LOC: M LABSMTC 10:48
PROVIDERS: ATTEND Pediatrics
DX: Z20.822 Contact with and (suspected) exposure to COVID-19 (principal)

== ENCOUNTER → 2020-09-19 | Outpatient (CLI) | payer BC | LOC: M LABSMTC 09:38 | PROVIDERS: ATTEND Anesthesiology | DX: Z01.812 Encounter for preprocedural laboratory examination (principal); Z20.822 Contact with and (suspected) exposure to COVID-19 ==

== ENCOUNTER 2020-09-23 07:59 | Day surgery (SDC) | payer BC ==
[~2020-09-23] VITALS: Ht 170.2 cm; Wt 84.1 kg
[2020-09-23] MEDS ORDERED: NS 1,000 ML IV ONE (09:10)
[2020-09-23] MEDS ORDERED: propofoL 200 MG/20 ML VIAL As Ordered ONE ×2 (09:36→09:53)
--- NOTE | 2020-09-23 10:15 | ROOR ---
Patient Name: Pat Eric Procedure Date: 09/23/2020 9:33 AM Date of : 1960 Age: 59 Room: [facility] Gender: Female Note Status: Finalized Procedure: Colonoscopy Indications: Screening for colon cancer: Family history of colorectal cancer in distant relative(s) Providers: Remy Ortiz MD Referring MD: Michael Fam MD Requesting Provider: Medicines: Monitored Anesthesia Care Complications: No immediate complications. Procedure: Pre-Anesthesia Assessment: - Prior to the procedure, a History and Physical was performed, and patient medications and allergies were reviewed. The patient is competent. The risks and benefits of the procedure and the sedation options and risks were discussed with the patient. All questions were answered and informed consent was obtained. Patient identification and proposed procedure were verified by the physician, the nurse and the anesthesiologist in the procedure room. Mental Status Examination: alert and oriented. Airway Examination: normal oropharyngeal airway and neck mobility. Respiratory Examination: clear to auscultation. CV Examination: normal. Prophylactic Antibiotics: The patient does not require prophylactic antibiotics. Prior Anticoagulants: The patient has taken no previous anticoagulant or antiplatelet agents. ASA Grade Assessment: II - A patient with mild systemic disease. After reviewing the risks and benefits, the patient was deemed in satisfactory condition to undergo the procedure. The anesthesia plan was to use monitored anesthesia care (MAC). Immediately prior to administration of medications, the patient was re-assessed for adequacy to receive sedatives. The heart rate, respiratory rate, oxygen saturations, blood pressure, adequacy of pulmonary ventilation, and response to care were monitored throughout the procedure. The physical status of the patient was re-assessed after the procedure. The Colonoscope was introduced through the anus and advanced to the terminal ileum, with identification of the appendiceal orifice and IC valve. The colonoscopy was performed without difficulty. The patient tolerated the procedure well. The quality of the bowel preparation was good. The terminal ileum, ileocecal valve, appendiceal orifice, and rectum were photographed. Scope insertion time was 2 minutes. Scope withdrawal time was 9 minutes. The total duration of the procedure was 12 minutes. Findings: The perianal and digital rectal examinations were normal. The terminal ileum appeared normal. Two sessile polyps were found in the descending colon. The polyps were 6 to 10 mm in size. These polyps were removed with a hot snare. Resection and retrieval were complete. Verification of patient identification for the specimen was done by the physician and nurse using the patient's name, date and medical record number. Estimated blood loss was minimal. Multiple small and large-mouthed diverticula were found in the sigmoid colon. There was no evidence of diverticular bleeding. Non-bleeding external and internal hemorrhoids were found during retroflexion. The hemorrhoids were medium-sized. Impression: - The examined portion of the ileum was normal. - Two 6 to 10 mm polyps in the descending colon, removed with a hot snare. Resected and retrieved. - Mild diverticulosis in the sigmoid colon. There was no evidence of diverticular bleeding. - Non-bleeding external and internal hemorrhoids. Recommendation: - Patient has a contact number available for emergencies. The signs and symptoms of potential delayed complications were discussed with the patient. Return to normal activities tomorrow. Written discharge instructions were provided to the patient. - High fiber diet. - Continue present medications. - Use fiber, for example Citrucel, Fibercon, Konsyl or Metamucil. - Await pathology results. - Repeat colonoscopy in 5 years for surveillance based on pathology results. - Telephone GI clinic for pathology results in 2 weeks. - Telephone GI clinic for pathology results in 2 weeks. - Return to GI clinic if persistent symptoms or new symptoms. - Return to primary care physician. Procedure Code(s): --- Professional --- 69458, Colonoscopy, flexible; with removal of tumor(s), polyp(s), or other lesion(s) by snare technique Diagnosis Code(s): --- Professional --- Z12.11, Encounter for screening for malignant neoplasm of colon Z80.0, Family history of malignant neoplasm of digestive organs K64.8, Other hemorrhoids K63.5, Polyp of colon K57.30, Diverticulosis of large intestine without perforation or abscess without bleeding CPT copyright 2019 [employer]. All rights reserved. The codes documented in this report are preliminary and upon adult specialist review may be revised to meet current compliance requirements. Remy Ortiz MD Remy Ortiz MD 09/23/2020 10:14:52 AM Electronically signed by Remy Ortiz MD Number of Addenda: 0 Note Initiated On: 09/23/2020 9:33 AM Estimated Blood Loss: Estimated blood loss was minimal.
[2020-09-23 10:20] VITALS: BP 149/75
== END 2020-09-23 10:31 | disposition home or self-care (01) ==
LOC: M OPP 07:59
PROVIDERS: ATTEND Internal Medicine Gastroenterology
DX: Z12.11 Encounter for screening for malignant neoplasm of colon (principal); Z86.010 Personal history of colon polyps; Z80.0 Family history of malignant neoplasm of digestive organs; D12.6 Benign neoplasm of colon, unspecified; K57.30 Diverticulosis of large intestine without perforation or abscess without bleeding; K64.8 Other hemorrhoids; Z79.899 Other long term (current) drug therapy

== ENCOUNTER → 2021-08-18 | Outpatient (CLI) | payer BC ==
[~2021-08-18] MED LIST changes: -DICY20TA11 PO; +DICY20TA20 PO
[2021-08-18 13:04] LABS: BASO % 0.3 % (0.0-1.0); EOS # 0.1 10^3/uL (0.0-0.5); EOS % 0.5 % (0.0-3.0); HEMATOCRIT 44.5 % (36.0-47.0); HEMOGLOBIN 14.7 g/dl (12.0-15.5); LYMPH # 1.6 10^3/uL (1.5-5.0); LYMPH % 17.4 % (24.0-44.0); MEAN CORPUSCULAR HEMOGLOBIN 31.1 pg (27.0-33.0); MEAN CORPUSCULAR VOLUME 94.3 fl (80.0-96.0); MONO % 10.5 % (2.0-8.0); NEUTROPHILS # 6.5 10^3/uL (1.5-8.5); NEUTROPHILS % 70.9 % (36.0-66.0); PLATELET COUNT, AUTOMATED 216 10^3/uL (150-450); RED BLOOD COUNT 4.72 10^6/uL (4.00-5.40); WHITE BLOOD COUNT 9.2 10^3/uL (4.0-10.0)
[2021-08-18 13:18] LABS: APPEARANCE, URINE HAZY (CLEAR); BACTERIA, URINE AUTO 1+ (NEGATIVE); BILIRUBIN, URINE AUTO NEGATIVE (NEGATIVE); BLOOD, URINE BLOOD 1+ (NEGATIVE); COLOR, URINE YELLOW (YELLOW); GLUCOSE, URINE (UA) AUTO NEGATIVE (NEGATIVE); KETONE, URINE AUTO TRACE mg/dL (NEGATIVE); LEUKOCYTE ESTERASE, URINE AUTO TRACE (NEGATIVE); MUCUS, URINE SMALL (NEGATIVE); NITRITE, URINE AUTO NEGATIVE (NEGATIVE); PROTEIN, URINE AUTO NEGATIVE (NEGATIVE); RBC, URINE AUTO 1 /HPF (0-3); SPECIFIC GRAVITY URINE AUTO 1.019 (1.002-1.035); SQUAMOUS EPITHELIAL CELL UR AU 1 /HPF (0-6); TRANSITIONAL EPITHELIAL AUTO <1 /HPF; UROBILINOGEN, URINE AUTO 0.2 mg/dL (0.0-2.0); WBC, URINE AUTO 1 /HPF (0-3)
[2021-08-18 13:21] LABS: BLOOD UREA NITROGEN 14 MG/DL (7-18); CREATININE FOR GFR 0.77 MG/DL (0.55-1.30); GLOMERULAR FILTRATION RATE > 60.0 (>45)
[2021-08-18 13:36] LABS: ERYTHROCYTE SEDIMENTATION RATE 42 mm/hr (0-30)
== END ==
LOC: M LAB 12:13
PROVIDERS: ATTEND Internal Medicine Gastroenterology
DX: R10.32 Left lower quadrant pain (principal)

== ENCOUNTER → 2021-09-18 | Outpatient (REF) | payer BC | LOC: M LAB REF 12:22 | PROVIDERS: ATTEND Otolaryngology | DX: E04.1 Nontoxic single thyroid nodule (principal) ==

== ENCOUNTER → 2021-11-08 | Outpatient (CLI) | payer BC ==
[~2021-11-08] MED LIST changes: +E-Z-GAS II EFFERVESCENT PACKET (SODIUM BICARB./CITRIC ACID/SIMETHICONE) As Ordered ONE; +E-Z-HD 98% w/w 340GM SUSP BTL As Ordered ONE; +E-Z-PAQUE 96% w/w SUSP 176GM BTL As Ordered ONE
== END ==
LOC: M RAD 08:19
PROVIDERS: ATTEND Internal Medicine Gastroenterology
DX: K31.7 Polyp of stomach and duodenum (principal); K57.92 Diverticulitis of intestine, part unspecified, without perforation or abscess without bleeding

== ENCOUNTER → 2024-09-22 | Outpatient (CLI) | payer MEDICARE, BC ==
[~2024-09-22] MED LIST changes: -E-Z-GAS II EFFERVESCENT PACKET (SODIUM BICARB./CITRIC ACID/SIMETHICONE) As Ordered ONE; -E-Z-HD 98% w/w 340GM SUSP BTL As Ordered ONE; -E-Z-PAQUE 96% w/w SUSP 176GM BTL As Ordered ONE
== END ==
LOC: M RAD 09:36
PROVIDERS: ATTEND Physician Assistant
DX: M25.561 Pain in right knee (principal); M25.562 Pain in left knee; Z47.1 Aftercare following joint replacement surgery
CPT/HCPCS: 78315; A9503